=== PATIENT | male | born 1955 | race Caucasian/White ===

== ENCOUNTER → 2023-06-04 | Outpatient (REF) | payer MEDICARE, OTHER, SELFPAY | LOC: DHSLP | PROVIDERS: ATTENDING PHYSICIAN Internal Medicine; FAMILY PHYSICIAN Family Medicine | DX: G47.30 Sleep apnea, unspecified (principal); R06.83 Snoring | CPT/HCPCS: 95800 ==

== ENCOUNTER → 2024-09-22 08:50 | Outpatient (REF) | payer MEDICARE, OTHER, SELFPAY ==
[2024-09-22 09:23] LABS: % Basophils 0.7 % (0-2); % Eosinophils 2.6 % (0-6); % Immature Granulocytes 0.3 % (0-0.5); % Lymphocytes 27.4 % (20.5-51.1); % Monocytes 11.3 % (1.7-9.3); % Neutrophils 57.7 % (42.2-75.2); Absolute Eosinophils 0.2 10^3/uL (0-0.7); Absolute Lymphocytes 1.7 10^3/uL (1.2-3.4); Absolute Monocytes 0.7 10^3/uL (0.1-0.6); Absolute Neutrophils 3.5 10^3/uL (1.4-6.5); Hematocrit 44.7 % (39.0-52.0); Hemoglobin 15.2 g/dL (13.0-18.0); Mean Corpuscular Hgb 31.3 pg (27.0-31.0); Mean Corpuscular Volume 92.2 fL (80.0-94.0); Mean Platelet Volume 9.3 fL (7.4-10.4); Nucleated Red Blood Cells % 0 % (-); Platelet Count 232 10^3/uL (130-400); Red Blood Cell Count 4.85 10^6/uL (4.70-6.10); Red Cell Dist. Width 12.1 % (11.5-14.5); White Blood Cell Count 6.1 10^3/uL (4.8-10.8)
[2024-09-22 09:30] LABS: INR 1.01; PT 13.8 Sec (11.4-14.6)
[2024-09-22 09:34] LABS: ALT (SGPT) 21 U/L (0-50); AST (SGOT) 25 U/L (17-59); Albumin 4.2 g/dl (3.5-5.0); Alkaline Phosphatase 61 U/L (38-126); Blood Urea Nitrogen 19 mg/dl (9-20); Calcium 9.7 mg/dl (8.4-10.2); Carbon Dioxide 28 mmol/L (22-30); Chloride 105 mmol/L (98-107); Glucose 100 mg/dl (70-99); Potassium 4.8 mmol/L (3.5-5.1); Sodium 141 mmol/L (135-145); Total Bilirubin 1.1 mg/dl (0.2-1.3); Total Protein 6.9 g/dl (6.3-8.2); eGFR > 60.00
== END ==
LOC: SDSPAT 08:50
PROVIDERS: ATTENDING PHYSICIAN Internal Medicine Cardiovascular Disease; FAMILY PHYSICIAN Family Medicine; OTHER PHYSICIAN Internal Medicine Cardiovascular Disease
DX: I48.91 Unspecified atrial fibrillation (principal)
CPT/HCPCS: 36415; 75572; 80053; 83735; 85025; 85610; 86850; 86900; 86901; 93005; Q9967

== ENCOUNTER 2024-10-14 05:54 | Day surgery (SDC) | payer MEDICARE, OTHER, SELFPAY ==
[2024-09-22 08:58] VITALS: BMI 27.9
--- NOTE | 2024-09-22 09:08 | HPS.HSE ---
Family Physician
-
Family Physician: NO INTERVIEW UNKNOWN
Chief Complaint
-
Paroxysmal atrial fibrillation.
History of Present Illness
The patient is a 68 year old male presenting today for paroxysmal atrial fibrillation. The patient reports a wide variety of symptoms associated with this diagnosis, which include palpitations, shortness of breath (primarily with
exertion), and lightheadedness. His Apple watch demonstrates a 16-40% atrial fibrillation burden. He is currently rate controlled without the use of pharmacological therapy. He has been compliant with Eliquis for oral anticoagulation. He notes that
his symptoms associated with his arrhythmia greatly interfere with his activities of daily living and overall impact his quality of life. He is interested in pursuing pulmonary vein isolation for further arrhythmia management. He denies any current
complaints today such as chest pain, shortness of breath at rest, nausea, vomiting, diarrhea, dizziness, cough, sore throat, or fever.
Medical History
Past Medical History
Past Medical History: Reports Other
Additional Past Medical History:
1. Paroxysmal atrial fibrillation, oral anticoagulation with Eliquis.
2. Frequent PVCs.
3. Hypercholesterolemia.
4. Coronary artery disease per pre-ablation chest CT.
5. Mild mitral regurgitation.
6. Vertigo.
7. Multilevel degenerative disc disease.
8. Osteoarthritis, status post right total hip arthroplasty 04/2023.
9. BPH with LUTS.
10. Chronic sinusitis.
11. Lyme's disease.
Past Surgical History: Reports Other
Additional Past Surgical History:
1. Right total hip arthroplasty.
2. Vasectomy.
3. Prostate biopsy.
4. Bilateral cataract extraction.
5. [place] teeth extraction.
Social History
Tobacco: Non-smoker
Alcohol: Other (He reports, on average, consuming 2-3 alcoholic drinks on the weekends. )
Personal:
Living: Other (He lives with his and 1 son in a 2 story home. )
Family History
Family History: Not pertinent
Allergies / Home Medications
Allergy/Medication List:
Home medications:
1. Acetaminophen 500 mg p.o. daily.
2. Eliquis 5 mg p.o. twice a day.
3. Dutasteride 0.5 mg p.o. daily.
4. Magnesium CoQ10 100 mg p.o. daily.
5. Rosuvastatin 10 mg p.o. daily.
Allergies: No known allergies.
Review of Systems
-
A 12 point ROS was completed and negative except as noted: Yes
Physical Exam
Vital Signs
Blood pressure 138/75. Heart rate 65. Respirations 18. Pulse ox 99% on room air.
Height 6 feet. Weight 93.2 kg. BMI 27.9.
Physical Exam
General: Well Developed, Well Nourished and No Apparent Distress
HEENT: NormoCephalic, Moist mucous membranes, Atraumatic and PERRLA
Respiratory: Clear
Cardiac: Irregular Rhythm
GI: Soft, Non Tender and Non Distended
Musculoskeletal: No Edema and Normal Gait & Station
Skin: Warm, Dry and Rash (Small erythematous rash on upper chest. )
Neuro: AO x 3 and Nonfocal/grossly intact
Laboratory Results
-
DIAGNOSTIC STUDIES as of 09/22/2024: White blood cell count 6.1. Hemoglobin 15.2. Platelet count 232,000. PT 13.8. INR 1.01. Sodium 141. Potassium 4.8. BUN 19. Creatinine 0.9. Glucose 100. Calcium 9.7. Magnesium 2.0. AST 25. ALT 21. Albumin 4.2.
Type and screen AB positive.
EKG 09/22/2024: Normal sinus rhythm with frequent, consecutive PVCs. When compared to the EKG of April 26, 2023, no significant change was found.
Chest CT 09/22/2024: Separate right superior and right inferior pulmonary veins draining into the left atrium. Common ostium of the left superior and inferior pulmonary veins draining into the left atrium. There is no evidence for left atrial
appendage thrombus. Severe calcific atherosclerotic plaque in the coronary arteries. Mild bilateral lung scarring. Severe discogenic degenerative disease at C6/C7, T12/L1, and L1/L2.
Echocardiogram 06/17/2023: The estimated ejection fraction is 55 to 60%. Indeterminate diastolic function. Moderate left atrial dilation. Mild mitral regurgitation. No aortic stenosis or aortic insufficiency. Trace tricuspid regurgitation with
estimated pulmonary artery systolic pressures of 25-30 mmHg.
Impression/Plan
-
IMPRESSION/PLAN:
1. Paroxysmal atrial fibrillation: The patient is in need of pulmonary vein isolation with Dr. Leighton Gunn on 10/14/2024. The benefits and risks of pulmonary vein isolation have been explained to the patient. The patient understands these risks
and wishes to proceed. He will not be required to undergo a pre-procedural transesophageal echocardiogram as he has been compliant with his home oral anticoagulation. He is aware to continue his Eliquis up until the night prior to his procedure. He
will take no medications the morning of his procedure.
2. Small erythematous upper chest rash: This should not interfere with his surgery. He reports he has been using over the counter hydrocortisone cream intermittently over the last several weeks. He was advised to use hydrocortisone cream twice a day
for 7-10 days. Should his rash not clear with continuous hydrocortisone use, he was advised to call his primary care physician for further medical management.
[2024-10-14] VITALS (17 sets, daily range): BP systolic 82–145; BP diastolic 63–122; BMI 27.9
[2024-10-14] MEDS: NSS 500 IV (07:09)
--- NOTE | 2024-10-14 07:28 | ITS.CL.ABL ---
Research Laboratory Specialist - Ablation
Ablation
Procedure Report:
Primary Supervisor Drilling And Shooting: Dr Wesley Dawkins
Procedure Date: 10/14/2024
Patient History:
Patient is a pleasant 68-year-old male with a past medical history significant for paroxysmal atrial fibrillation, osteoarthritis, BPH..
See H&P for complete details.
Indication:
Symptomatic paroxysmal atrial fibrillation
Arrhythmia Specific History:
Prior Medical Therapies for Rate and Rhythm Control:
[ ] Beta-rafiq
[ ] Calcium channel-rafiq
[ ] Amiodarone
[ ] Dronederone
[ ] Sotalol
[ ] Flecainide
[ ] Dofetilide
X Options limited by bradycardia
[ ] Options limited by comorbid renal disease
Prior Procedural Therapies for AF/AFL:
[ ] Cardioversion
[ ] Pulmonary Vein Isolation
[ ] Posterior Wall Isolation
[ ] Additional lines (Specify)
[ ] Surgical Diehl-MAZE or PVI (Specify)
Procedure Performed:
X AF ablation procedure (66951) -- includes LA/CS pacing, trans-septal, 3D mapping, + ICE
[ ] +IV drug (71540)
[ ] +Other Arrhythmia (22543)
X +Other AF Line/ablation (03130) - posterior wall, floor, roof
Risks and expected recovery has been explained in detail. Alternative options have been explored, and in a shared-decision making fashion we have decided that this was the most appropriate procedure.
Method
NPO status confirmed. Grounding pad applied. Defibrillator pads applied. Continuous surface ECG, pulse oximetry, and blood pressure were monitored. Procedure was performed under general anesthesia, with anesthesia services.
Both groins were clipped, prepped with Chloraprep, and draped in sterile fashion. Time out was called. Local anesthesia administered with bupivacaine. The right femoral vein was accessed for catheter placement, using ultrasound guidance (images
saved to record), micro-puncture needle/wire, and modified seldinger technique. 3 sheaths were placed. The following catheters were used:
[ ] Tacticath SE (D/F Curve) ablation catheter
X Viewflex 9Fr ICE catheter
X Inquiry decapolar 6Fr diagnostic catheter
[ ] CRD Hex 6Fr
[ ] Arctic Front Advance Cryoballoon ([ ]28mm[ ]23mm)
[ ] Achieve Advance mapping catheter ([ ]15mm[ ]20mm)
X FlexCath Contour 10 Fr with PulseSelect PFA Catheter
X Advisor HD Grid Mapping Catheter, SE
[ ] Acuson AcuNav 8 Fr ICE catheter
[ ]Other: [ ]
Intracardiac ultrasound (ICE) was carefully advanced into the right atrium to guide sheath placement over a J-wire, catheter placement, guide trans-septal puncture, identify potential complications, identify anatomic structures and ensure proper
contact between ablation catheter and tissue.
Heparin was given prior to trans-septal puncture. Heparin was given to achieve and maintain a target ACT of 300-400 seconds throughout the procedure.
Trans-septal access was performed under ICE guidance. The trans-septal puncture was performed with a SafeSept wire through a Brockenbrough needle assembly through the steerable sheath. The wire was visualized as it entered the LSPV and system
advanced under ICE guidance and fluoroscopy into the LA. The Brockenbrough needle assembly, SafeSept wire and sheath dilator were removed under negative pressure. LA pressure was measured and recorded.
ICE and 3D mapping was performed to identify relevant cardiac structures. A careful 3D map was created to assess for regions of low-voltage and abnormal electrogram signals using HD grid mapping catheter and PulseSelect catheter. Additional mapping
was performed as outlined below.
Prior to ablation, glycopyrrolate was provided. PulseSelect catheter was advanced over J-wire to the ostium of each vein. Pulmonary vein isolation was performed with ostial and antral lesions in a circumferential manner. Contact was visualized via
EAM, ICE, fluoroscopy, and EGM signals. Due to patient's left common ostium and close proximity to right-sided veins, posterior wall isolation was performed by anchoring the J-wire within the pulmonary vein and placing the PulseSelect catheter in
contact with the posterior wall as visualized by aforementioned methods. Following completion of ablation lesions, a post-ablation voltage/activation map was performed in sinus rhythm. Entrance and exit block were confirmed for each vein and the
posterior wall.
Catheter and sheath were removed from the left atrium and post-ablation intracardiac echo evaluation was consistent with pre-ablation with no changes and no pericardial effusion and there is no left atrial thrombus or left ventricle thrombus seen.
Electrophysiology study was performed, no additional arrhythmias induced. Hemostasis was obtained with figure of 8 stitch for each groin and with manual pressure. Protamine was used for reversal.
Estimated Blood Loss
5 mL
Complications
None
Fluoroscopy: 2.2 minutes; 7.69 mGy; DAP 0.805
LA Pressure: Pre 9 mmHg, post 9 mmHg
Baseline Intervals:
Rhythm: SR
NM: 148 ms
QRS: 85 ms
QT: 494 ms
QTc: 554 ms
Post-Procedure Intervals:
NM: 162 ms
QRS: 78 ms
QT: 429 ms
QTc: 453 ms
A-A: 897 ms
R-R: 897 ms
AVWB: 370 ms
AERP: 600/290 ms
Recommendations
- Bedrest with straight-leg precautions as ordered
- Anticipate same day discharge if patient meeting clinical metrics
- Resume home medications as indicated
- Ok to resume anticoagulation tonight if patient and groin sites stable
- PPI daily for 30 days
- Plan for follow-up in office as scheduled
Leighton Gunn, , [facility], [facility]
Clinical Cardiac Molecular Biology Scientist
cc: Dr Wesley Dawkins; Dr Florencio Lao
[2024-10-14] MEDS: PROSCAR 5 MG PO (07:30)
[2024-10-14 08:54] LABS: ACT-LR - POC 247 Seconds (116-155)
[2024-10-14 09:11] LABS: ACT-LR - POC 310 Seconds (116-155)
[2024-10-14 09:27] LABS: ACT-LR - POC 302 Seconds (116-155)
[2024-10-14 09:45] LABS: ACT-LR - POC 345 Seconds (116-155)
[2024-10-14 10:06] LABS: ACT-LR - POC 224 Seconds (116-155)
[2024-10-14] MEDS: TYLENOL 650 MG PO (13:25)
--- NOTE | 2024-10-14 14:22 | W.PN.UPDATE ---
Update Note
Progress Note Update
Pt seen post PFA. Right groin site without ht/bleeding, non tender. OOB ambulating, urinating without difficulty. Post EKG NSR 66, no acute changes. Resume Eliquis tonight at usual time. 30 day rx for protonix sent to pharmacy. Followup at [facility] as
scheduled. Home today if groin site/tele remain stable.
[2024-10-14] MEDS: NSS 250 IV (15:36)
--- NOTE | 2024-10-14 15:37 | PTCARENOTE ---
Pt unable to urinate after 2 bathroom attempts. No urge to void. Bladder non-distended. S/P 4 bottles of water, ambulation, warm compress above bladder. Bladder scan 340's-350's. NSS bolus with 500 mls administered at this time per Guy proposal editor
== END 2024-10-14 16:46 | disposition home or self-care (01) ==
LOC: CATH 05:54
PROVIDERS: ATTENDING PHYSICIAN Internal Medicine Cardiovascular Disease; FAMILY PHYSICIAN Family Medicine; OTHER PHYSICIAN Internal Medicine Cardiovascular Disease
DX: I48.0 Paroxysmal atrial fibrillation (principal); E78.00 Pure hypercholesterolemia, unspecified; I25.10 Atherosclerotic heart disease of native coronary artery without angina pectoris; M19.90 Unspecified osteoarthritis, unspecified site; Z79.899 Other long term (current) drug therapy; Z79.01 Long term (current) use of anticoagulants; I34.0 Nonrheumatic mitral (valve) insufficiency; R42 Dizziness and giddiness; N40.1 Benign prostatic hyperplasia with lower urinary tract symptoms; J32.9 Chronic sinusitis, unspecified; A69.20 Lyme disease, unspecified; Z96.641 Presence of right artificial hip joint; N40.0 Benign prostatic hyperplasia without lower urinary tract symptoms
CPT/HCPCS: C1732; C1894 ×2; C1730; C1769; C1733; C1766; 85347; 86900; 86901; 93005; 93656; 93657